=== PATIENT | female | born 1995 | race African-American/Black ===

== ENCOUNTER 2016-12-13 18:19 | Emergency (ER) | payer SELFPAY ==
[~2016-12-13] VITALS: Ht 157.5 cm; Wt 72.6 kg
[~2016-12-13 18:19] MED LIST: PRED20TA PO; ZINC30OI TP
[2016-12-13 18:23] VITALS: BP 135/76
--- NOTE | 2016-12-13 18:51 | PHYS DOC ---
Past Medical History Past Medical History: No Pertinent History Past Surgical History: No Surgical History Alcohol Use: Occasionally Drug Use: None Adult General Chief Complaint Chief Complaint: DENTAL PROBLEM HPI HPI Patient is a 21 year old female presents to the emergency department stating that she has 2 sores on her lips one on her bottom lip on her upper lip. She states that she's had the sores for the last week. She states at the very tender and have a little white head to the top of him. Patient states that she has had no drainage or discharge. She does work in a [employer]. Patient denies any fever, chills or any nausea vomiting. Review of Systems Review of Systems Constitutional: Denies fever or chills [] Eyes: Denies change in visual acuity, redness, or eye pain [] HENT: Denies nasal congestion or sore throat [] Respiratory: Denies cough or shortness of breath [] Cardiovascular: No additional information not addressed in HPI [] GI: Denies abdominal pain, nausea, vomiting, bloody stools or diarrhea [] : Denies dysuria or hematuria [] Musculoskeletal: Denies back pain or joint pain [] Integument: Complaining rash on lips. No skin lesions Neurologic: Denies headache, focal weakness or sensory changes [] Endocrine: Denies polyuria or polydipsia [] Allergies Allergies Allergies Coded Allergies Type Severity Reaction Last Updated Verified No Known Drug Allergies 04/22/16 No Physical Exam Physical Exam Constitutional: Well developed, well nourished, no acute distress, non-toxic appearance. [] HENT: Normocephalic, atraumatic, bilateral external ears normal, oropharynx moist, no oral exudates, nose normal. [] Eyes: PERRLA, EOMI, conjunctiva normal, no discharge. [] Neck: Normal range of motion, no tenderness, supple, no stridor. [] Cardiovascular:Heart rate regular rhythm, no murmur [] Lungs & Thorax: Bilateral breath sounds clear to auscultation [] Abdomen: Bowel sounds normal, soft, no tenderness, no masses, no pulsatile masses. [] Skin: Warm, dry, no erythema patient noted to have red area on her right upper lip, one on the left lower lip. The area appears to be swollen and reddish. No drainage or discharge coming from the site. Extremities: No tenderness, no cyanosis, no clubbing, ROM intact, no edema. [] Neurologic: Alert and oriented X 3, normal motor function, normal sensory function, no focal deficits noted. [] Psychologic: Affect normal, judgement normal, mood normal. [] Current Patient Data Vital Signs Vital Signs Date Time Temp Pulse Resp B/P (MAP) Pulse Ox O2 Delivery O2 Flow Rate FiO2 12/13/16 18:23 98.5 76 16 99 Room Air 98.5 EKG EKG [] Radiology/Procedures Radiology/Procedures [] Course & Med Decision Making Course & Med Decision Making Pertinent Labs and Imaging studies reviewed. (See chart for details) Patient was recommended to use Abreva [id number]. Patient will be discharged home in stable condition signs and symptoms to return back to emergency department as been provided. Patient agrees with discharge instructions treatment regimens and follow-up recommendations. Since symptoms to return back to emergency department have been provided [] Dragon Disclaimer Dragon Disclaimer This electronic medical record was generated, in whole or in part, using a voice recognition dictation system. Departure Departure Impression: Primary Impression: Cold sore Disposition: 01 HOME, SELF-CARE Condition: STABLE Referrals: NO PCP (PCP) Patient Instructions: Cold Sore, [id number] Additional Instructions: Activity as tolerated. Abrevia as mentioned as instructed by restrictive preparation operator [id number] You may take Tylenol or ibuprofen for fever chills or generalized body aches and discomfort. Follow-up with primary care physician in the next week. Return back to emergency prior signs symptoms become worse. CIARA BROCK APRN Dec 13, 2016 18:51
== END 2016-12-13 19:24 | disposition home or self-care (01) ==
LOC: ER 18:19
DX: B00.1 Herpesviral vesicular dermatitis (principal)
CPT/HCPCS: 99281